=== PATIENT | female | born 1930 | race Caucasian/White ===

== ENCOUNTER → 2019-01-12 | Outpatient (CLI) | payer MEDICARE ==
[~2019-01-12] MED LIST: ACEBUTOLOL HCL200 MG PO; LASIX20 MG PO; LEVOTHYROXINE88 MCG PO; LISINOPRIL10 MG PO; MULTAQ 400MG T400 MG PO; OMEPRAZOLE10 MG PO; PREDNISONE10 MG PO; PREDNISONE20 MG PO; SOMINEX PO; TYLENOL325 MG PO
--- NOTE | 2019-01-12 10:48 | Diagnostic Imaging Report ---
EXAMINATION: CHEST 2 VIEWS INDICATION: Shortness of breath COMPARISON: None FINDINGS: LINES/TUBES:None LUNGS:The lungs are hyperinflated. There are bilateral upper lobe predominant emphysematous changes. No focal consolidation. PLEURA:No pleural effusion or pneumothorax. MEDIASTINUM:The cardiomediastinal silhouette appears mildly enlarged in size and shape. Extensive valvular calcification and atherosclerotic thoracic aortic calcification. BONES/SOFT TISSUES:No acute osseous injury. Diffuse osteopenia. Degenerative changes of the visualized spine. Exaggerated thoracic kyphosis. ABDOMEN:No free air under the diaphragm. IMPRESSION: Hyperinflated lungs with bilateral upper lobe predominant emphysema. No focal pneumonia or pulmonary edema. Signed by: Shahbaz Marcano MD on 01/12/2019 10:44 AM
== END ==
LOC: RAD 09:50
PROVIDERS: ATTEND Internal Medicine
DX: R91.8 Other nonspecific abnormal finding of lung field (principal)
CPT/HCPCS: 71046